=== PATIENT | male | born 1995 | race African-American/Black ===

== ENCOUNTER 2020-01-24 18:36 | Emergency (ER) | payer SELFPAY ==
--- NOTE | 2020-01-24 18:57 | ER Document Report ---
HPI - HPI Patient complains to provider of: Cough shortness of breath, chest pain Onset: Other Onset/Duration: Persistent Context: This 25-year-old healthy male presents to the emergency department with complaints of productive cough with white sputum for the past couple days that is getting worse. He reports all day long he has had trouble breathing with a little bit of shortness of breath and his chest hurting today. He reports he had runny nose the other day but none today. Reports a sore throat and been sneezing. Otherwise reports he has been eating drinking voiding bowel movement as normal. Denies fever vomiting diarrhea. He reports he did receive the flu vaccine in 2019. He denies recent trip. Lives with his family, his mother and brother. His brother works at the [employer] and his mother does not work. No covid exposure that he knows of. Patient works at a [employer]. Associated Symptoms: Chest pain, Productive cough, Shortness of breath, Sore throat. denies: Body/muscle aches, Diarrhea, Fever, Nausea, Vomiting Exacerbated by: Denies Relieved by: Denies Similar symptoms previously: No Recently seen / treated by doctor: No Past Medical History - General Information source: Patient - Social History Smoking Status: Unknown if Ever Smoked Cigarette use (# per day): No Frequency of alcohol use: None Drug Abuse: None Occupation: [employer] Lives with: Family Family History: Other - mother-asthma Patient has suicidal ideation: No Patient has homicidal ideation: No - Medical History Medical History: Negative Surgical Hx: Negative Vertical Provider Document - CONSTITUTIONAL Agree With Documented VS: Yes Exam Limitations: No Limitations General Appearance: WD/WN, No Apparent Distress - HEENT HEENT: Atraumatic, Normal ENT Exam, Normocephalic. negative: Conjuctival Injection, Pharyngeal Exudate, Pharyngeal Erythema, Tympanic Membrane Red, Tympanic Membrane Bulging - NECK Neck: Normal Inspection, Supple. negative: Lymphadenopathy-Left, Lymphadenopathy-Right - RESPIRATORY Respiratory: Breath Sounds Normal, No Respiratory Distress - Respiratory rate even unlabored. Speaks in a clear voice no shortness of breath noted no cough noted during entire interview and assessment. - CARDIOVASCULAR Cardiovascular: Regular Rate, Regular Rhythm - GI/ABDOMEN Gastrointestinal: Abdomen Soft, Abdomen Non-Tender - BACK Back: Normal Inspection - MUSCULOSKELETAL/EXTREMETIES Musculoskeletal/Extremeties: FLAQUITA MOSQUEDA - NEURO Level of Consciousness: Awake, Alert, Appropriate Motor/Sensory: No Motor Deficit - DERM Integumentary: Warm, Dry, No Rash - No visual rash Course - Re-evaluation Re-evalutation: 01/24/20 20:03 25-year-old male with no prior history presents with productive cough for the past few days with some white sputum production and shortness of breath and chest pain that started today. Denies fever vomiting diarrhea. Reports he is eating drinking voiding bowel movement is normal. Reports a sore throat sneezing and did have a runny nose but not today. Reports his taste is fine no complaints of fatigue. No known exposure to the Covid virus no recent trips. Chest x-ray is negative for pneumonia. Vital signs are stable. Respiratory rate even and unlabored no retractions. Flu and strep were negative. Patient was instructed to monitor symptoms, monitor his temperature return for problems and follow-up with his primary care provider. He verbalized understanding to all instructions. Laboratory 01/24/20 01/24/20 19:05 19:05 Influenza A (Rapid) NEGATIVE Influenza B (Rapid) NEGATIVE Group A Strep Rapid NEGATIVE Chest X-Ray 01/24/20 18:52 IMPRESSION: NO ACUTE RADIOGRAPHIC FINDING IN THE CHEST. - Diagnostic Test Radiology reviewed: Image reviewed, Reports reviewed - EKG Interpretation by Me EKG shows normal: Sinus rhythm Rate: Normal Rhythm: NSR Additional EKG results interpreted by me: 01/24/20 20:[address] elevation no T wave inversion Discharge - Discharge Clinical Impression: Cough, Shortness of breath, Difficulty breathing Condition: Stable Disposition: HOME, SELF-CARE Instructions: Family Physicians / Practices Additional Instructions: *You have been evaluated for cough with difficulty breathing, shortness of breath *Your flu and strep test were negative. Your chest x-ray was negative for pneumonia. *Increase fluid intake, wash your hands well, jail in place and practice social distancing *Monitor your temperature, take Tylenol as indicated *Follow up with a primary care provider in one week *Return to ED for worsening condition, changes, needs, increasing difficulty breathing, concerns Forms: Elevated Blood Pressure, Return to Work
[2020-01-24 19:40] LABS: A TYPE INFLUENZA AG NEGATIVE (NEGATIVE); B INFLUENZA AG NEGATIVE (NEGATIVE)
--- NOTE | 2020-01-24 20:02 | RADIOLOGY REPORT (SQ) ---
EXAM DESCRIPTION: CHEST SINGLE VIEW IMAGES COMPLETED DATE/TIME: 01/24/2020 7:35 pm REASON FOR STUDY: cough sob COMPARISON: None. EXAM PARAMETERS: NUMBER OF VIEWS: One view. TECHNIQUE: Single frontal radiographic view of the chest acquired. RADIATION DOSE: NA LIMITATIONS: None. FINDINGS: LUNGS AND PLEURA: No opacities, masses or pneumothorax. No pleural effusion. MEDIASTINUM AND HILAR STRUCTURES: No masses. Contour normal. HEART AND VASCULAR STRUCTURES: Heart normal in size. Normal vasculature. BONES: No acute findings. HARDWARE: None in the chest. OTHER: No other significant finding. IMPRESSION: NO ACUTE RADIOGRAPHIC FINDING IN THE CHEST. TECHNICAL DOCUMENTATION: JOB ID: [id number] 2010 [employer]- All Rights Reserved Reading location - IP/workstation name: [email or web address]
[2020-01-24 20:04] VITALS: BP 146/96
--- NOTE | 2020-01-25 08:28 | EKG REPORT ---
SEVERITY:- NORMAL ECG - SINUS RHYTHM : Confirmed by: Bhumi Baum 25-Jan-2020 08:27:08
== END 2020-01-24 20:12 | disposition home or self-care (01) ==
LOC: ER 18:36
DX: R05 Cough (principal); R06.02 Shortness of breath; R07.9 Chest pain, unspecified; J02.9 Acute pharyngitis, unspecified; R06.7 Sneezing
CPT/HCPCS: 71045; 87070; 87804; 87880; 93005; 93010; 99284